=== PATIENT | female | born 1955 | race Caucasian/White ===

== ENCOUNTER 2018-06-01 07:10 | Day surgery (SDC) | payer OTHER ==
[~2018-06-01] VITALS: Ht 157.5 cm; Wt 96.4 kg
[~2018-06-01 07:10] MED LIST: AMLO5 PO; ASPI81CH PO; ATEN25 PO; CHOL10002 PO; Cipro500 MG PO; ESTRADIOL1 MG PO; FOLI1 PO; HORMONE REPLACEMENT; HYDACE10B PO; HYDCHL25 PO; Hydrochlorothia50 MG PO; LEVSOD50 PO; LOSA50 PO; METTREX2.5 PO; Norco 10-325 T1 EACH PO; PREG25 PO; Phentermine HCl15 MG PO; STOOL SOFTENER100 MG PO; Zantac PO
--- NOTE | 2018-06-01 12:18 | NUR ---
Patient up to Ambulate independently. Gait steady. Discharge instructions reviewed with patient. Patient verbalizes understanding. Copy given to patient to take home. Patient States Post-Procedure ride home has been arranged. Discharged via wheelchair to private car for ride home. PT SCRIPT PLACED IN RECYCLE. VERIFIED WITH KAREN MARTINEZ. PT STATED SHE HAD PAIN MEDS AT HOME AND DIDN'T WANT THE SCRIPT. ALL BELONGINGS RETURNED AND ACCOUNTED FOR BY PATIENT.
== END 2018-06-01 22:38 | disposition home or self-care (01) ==
LOC: ORSCMMR 07:10 → ORD 08:45 → ORSCMMR 08:45
PROVIDERS: Surgery
PROC: 0WUF0JZ Supplement Abdominal Wall with Synthetic Substitute, Open Approach (ICD-10-PCS; principal; 2018-06-01 08:45)
DX: K42.9 Umbilical hernia without obstruction or gangrene (principal); I10 Essential (primary) hypertension; E03.9 Hypothyroidism, unspecified; M79.7 Fibromyalgia; Z79.899 Other long term (current) drug therapy; Z79.82 Long term (current) use of aspirin
CPT/HCPCS: C1781; J0690; J1100; J1885; J2250; J2405; J3010; J7120